=== PATIENT | male | born 1955 | race Caucasian/White ===

== ENCOUNTER → 2018-05-28 10:54 | Outpatient (CLI) | payer MEDICARE, SELFPAY ==
[2018-05-28 12:09] LABS: BUN Creatinine Ratio 22.5 (6-22); Blood Urea Nitrogen 27 mg/dL (9-20); Calcium 9.3 mg/dL (8.4-10.2); Carbon Dioxide 29 mmol/L (22-32); Chloride 98 mmol/L (98-107); Estimated Glomerular Filt Rate > 60.0 mL/min (>60); Glucose 105 mg/dL (80-110); HEMOLYSIS 28 (0-50); Potassium 4.6 mmol/L (3.4-5.1); Sodium 139 mmol/L (137-145)
[2018-06-01 14:06] LABS: JAK2 V617F NOT DETECTED (NOT DETECTED)
== END ==
PROVIDERS: PCP Physician Assistant; Visit Provider Physician Assistant
DX: D45 Polycythemia vera (principal); E11.9 Type 2 diabetes mellitus without complications
CPT/HCPCS: 36415; 80048; 81270

== ENCOUNTER → 2018-05-31 16:15 | Outpatient (CLI) | payer MEDICARE, SELFPAY ==
--- NOTE | 2018-05-31 16:18 | DI.MRI.S_ITS ---
PROCEDURE: MR SHOULDER RT WO CON INDICATIONS: RIGHT SHOULDER PAIN TECHNIQUE: Noncontrast oblique coronal T2 fast spin echo with fat saturation, oblique sagittal T1 spin echo and T2 fast spin echo with fat saturation, axial T1 spin echo and T2 fast spin echo with fat saturation through the shoulder. COMPARISON: None. FINDINGS: Image quality: Diagnostic. Rotator cuff: There is a high-grade bursal surface partial-thickness tear identified involving the anterior distal supraspinatus tendon and the distal infraspinatus tendon. A small full-thickness component is suspected without significant retraction. There is moderate supraspinatus and infraspinatus tendinopathy increased signal extends along the infraspinatus myotendinous junction. There is subscapularis tendon demonstrates low to moderate grade articular surface partial thickness tearing. The teres minor tendon is intact. There is atrophy involving the teres minor muscle. No significant atrophy involving the remainder of the rotator cuff muscles is evident. Bones and bursae: There is no acute fracture, dislocation, suspicious osseous lesion, or evidence of avascular necrosis involving the osseous structures of the right shoulder. There are mild degenerative changes of the glenohumeral joint with an associated small glenohumeral joint effusion. Moderate degenerative changes of the acromioclavicular joint are present. There is a moderate amount of fluid contained within the subacromial subdeltoid bursa. Capsule and soft tissues: Evaluation of the labrum and the glenohumeral ligaments is difficult without intra-articular contrast. There is increased signal identified along the superior margin of the labrum, suspicious for a superior labral tear. Additional heterogeneity and increased signal at the labral cartilaginous junction along the anteroinferior and posteroinferior margins of the labrum are present. A full-thickness tear involving the long head of the biceps tendon is identified with the distal retraction beyond the bicipital groove. No acute injuries are suspected involving the glenohumeral ligaments. IMPRESSION: 1. There is at least a high grade bursal surface partial thickness tear involving the distal supraspinatus and infraspinatus tendons. Non-retracted full-thickness component is suspected. There is corresponding tendinopathy and possible delamination of the infraspinatus myotendinous junction. 2. Low to moderate grade partial-thickness subscapularis tendon tear. 3. Full-thickness tear of the long head of the biceps tendon with moderate distal retraction. 4. Complex tearing of the labrum may be circumferential and likely is degenerative. The need for better characterization utilizing MR arthrography may be determined clinically. 5. Moderate degenerative changes of the acromioclavicular joint. 6. Fluid contained within the subacromial subdeltoid bursa is likely reactive to the rotator cuff injury. Dictated by: Stevie Islas M.D. on 05/31/2018 at 16:58 Approved by: Stevie Islas M.D. on 05/31/2018 at 17:04
== END ==
PROVIDERS: PCP Physician Assistant; Visit Provider Physician Assistant
DX: M75.111 Incomplete rotator cuff tear or rupture of right shoulder, not specified as traumatic (principal); M19.011 Primary osteoarthritis, right shoulder
CPT/HCPCS: 73221

== ENCOUNTER → 2018-06-30 11:34 | Outpatient (CLI) | payer MEDICARE, SELFPAY ==
[2018-06-30 11:44] LABS: Bacteria Urine None Seen; RBC Urine None Seen (0-5/HPF)
[2018-06-30 12:27] LABS: Add Manual Diff / Slide Review NO; Basophils Percent Auto 0.7 % (0-2); Eosinophils Percent Auto 2.3 % (2-4); Hematocrit 56.8 % (41-53); Hemoglobin 18.8 g/dL (13.5-17.5); Lymphocytes Percent Auto 17.9 % (25-40); Mean Corpuscular HGB Conc 33.2 % (30-36); Mean Corpuscular Hemoglobin 32.3 PG (26-34); Mean Corpuscular Volume 97.4 fL (80-100); Monocytes Percent Auto 8.5 % (3-14); Neutrophils Absolute Auto 8100 /uL (3000-5900); Neutrophils Percent Auto 70.6 % (50-75); Platelet Count 203 X10^3/uL (150-400); Red Blood Cell Count 5.83 X10^6/uL (4.5-5.9); Red Cell Distribution Width 15.1 % (11.6-14.8); White Blood Cell Count 11.4 X10^3/uL (4.5-11.0)
[2018-06-30 12:48] LABS: Appearance Urine UA CLEAR; Bilirubin Urine UA NEGATIVE (NEGATIVE); Color Urine UA YELLOW; Glucose Urine UA 3+ g/dL (Normal); Ketones Urine UA NEGATIVE (NEGATIVE); Leukocyte Esterase Urine UA NEGATIVE (NEGATIVE); Nitrite Urine UA Negative (Negative); Occult Blood Urine UA NEGATIVE (Negative); Protein Urine UA NEGATIVE (Negative); Prothrombin Time 10.5 SECONDS (10.1-12.7); Urobilinogen Urine UA 0.2 E.U./dL (0.2)
[2018-06-30 12:49] LABS: Alanine Aminotransferase 32 IU/L (21-72); Albumin 4.1 g/dL (3.5-5.0); Albumin Globulin Ratio 1.5 (1.0-2.8); Alkaline Phosphatase 84 U/L (38-126); Aspartate Aminotransferase 26 IU/L (17-59); BUN Creatinine Ratio 17.3 (6-22); Bilirubin Total 0.6 mg/dL (0.2-1.3); Blood Urea Nitrogen 19 mg/dL (9-20); Calcium 9.9 mg/dL (8.4-10.2); Carbon Dioxide 27 mmol/L (22-32); Chloride 102 mmol/L (98-107); Estimated Glomerular Filt Rate > 60.0 mL/min (>60); Globulin 2.8 g/dL (1.7-4.1); Glucose 65 mg/dL (80-110); HEMOLYSIS 40 (0-50); Potassium 4.7 mmol/L (3.4-5.1); Sodium 141 mmol/L (137-145); Total Protein 6.9 g/dL (6.3-8.2)
[2018-06-30 13:17] LABS: Culture Indicated Urine Cult Not Indicated; Squamous Epithelial Cell Urine 0-1 /HPF; WBC Urine 0-1/HPF (0-5/HPF)
== END ==
PROVIDERS: PCP Physician Assistant; Visit Provider Neurological Surgery
DX: Z01.812 Encounter for preprocedural laboratory examination (principal); M46.96 Unspecified inflammatory spondylopathy, lumbar region; M96.1 Postlaminectomy syndrome, not elsewhere classified
CPT/HCPCS: 36415; 80053; 81001; 85025; 85610

== ENCOUNTER → 2018-09-05 15:37 | Outpatient (CLI) | payer MEDICARE, SELFPAY ==
[2018-09-05 16:04] LABS: Add Manual Diff / Slide Review NO; Basophils Percent Auto 0.7 % (0-2); Eosinophils Percent Auto 1.4 % (2-4); Hematocrit 55.7 % (41-53); Hemoglobin 18.4 g/dL (13.5-17.5); Mean Corpuscular Hemoglobin 32.2 PG (26-34); Mean Corpuscular Volume 97.7 fL (80-100); Monocytes Percent Auto 12.1 % (3-14); Neutrophils Absolute Auto 6600 /uL (3000-5900); Neutrophils Percent Auto 70.8 % (50-75); Platelet Count 211 X10^3/uL (150-400); Red Cell Distribution Width 17.5 % (11.6-14.8); White Blood Cell Count 9.3 X10^3/uL (4.5-11.0)
[2018-09-05 16:13] LABS: BUN Creatinine Ratio 19.2 (6-22); Blood Urea Nitrogen 25 mg/dL (9-20); Calcium 9.4 mg/dL (8.4-10.2); Carbon Dioxide 33 mmol/L (22-32); Chloride 99 mmol/L (98-107); Estimated Glomerular Filt Rate 55.4 mL/min (>60); Glucose 96 mg/dL (80-110); HEMOLYSIS 20 (0-50); Potassium 4.5 mmol/L (3.4-5.1); Sodium 143 mmol/L (137-145)
== END ==
PROVIDERS: PCP Physician Assistant; Visit Provider Orthopaedic Surgery
DX: Z01.818 Encounter for other preprocedural examination (principal); M25.511 Pain in right shoulder
CPT/HCPCS: 36415; 80048; 85025; 93005; 93010

== ENCOUNTER 2018-09-16 11:21 | Day surgery (SDC) | payer MEDICARE, SELFPAY ==
[2018-09-13 08:21] VITALS: BMI 38.4
[2018-09-16] VITALS (10 sets, daily range): BP systolic 101–134; BP diastolic 39–76; PULSE 63–74; RESP 11–16; TEMP 36.3–37.8; O2SAT 93–100; BMI 38.4
[2018-09-16] MEDS: LACTATED RINGERS 1,000 ML 42 ML IV ×2 (12:27→13:24)
--- NOTE | 2018-09-16 12:40 | SUR.PREOP ---
CGM (CONTINUOUS GLUCOSE MONITOR ) IN LEFT UPPER ARM, SPINAL NERVE STIMULATOR PT STATES HE HAS SHUT IT OFF.
--- NOTE | 2018-09-16 13:04 | PM.PREOP ---
Pre-operative Note Interval Note Pre-op Check: Yes History & Physical Reviewed by Physician and Yes Exam Performed Changes: Yes H&P completed within 30 days and has changed as indicated here:: The patient has had a low grade temperature with no other symptoms. There are no findings of infection related to the right shoulder and his lungs are clear.
[2018-09-16] MEDS: CEFAZOLIN 2 GM/100 ML FROZ.PIGGY IV (13:52)
--- NOTE | 2018-09-16 14:37 | SUR.OPER ---
Lateral on padded OR bed with collado bag positioner, head on pillow, gel axillary roll in place, bottom leg bent with gel pad under knee to foot, upper leg straight and supported with pillows. Operative arm secured in shoulder positioning suspension device. non-operative arm secured on padded arm board. Safety belt at hip, tape over blanket securing lower legs, torso and head.
--- NOTE | 2018-09-16 15:57 | PM.OP.1 ---
Operative Date/Time/Diagnoses Date of procedure: 09/16/18 Time of procedure: 15:40 Pre-op diagnosis: Right shoulder rotator cuff tear Post-op diagnosis: same (Also biceps tendinitis) Procedure & Clinicians Procedure: 1. Arthroscopic rotator cuff repair, right shoulder 2. Arthroscopic subacromial decompression, right shoulder 3. Arthroscopic biceps tenotomy, right shoulder 4. Suprascapular nerve block performed by surgeon for postoperative pain control. 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 His MRI appears to show tearing of both the junction of the supraspinatus with the infraspinatus and the subscapularis. After discussion the risks benefits and alternatives he has agreed to surgery. Risks discussed included but were not limited to: Failure to improve, stiffness, infection, nerve damage, deep venous thrombosis, pulmonary embolism, stroke, myocardial infarction, permanent paralysis and . Surgeon: Santy B[employer] Sales Representative: Lorene Acosta'Brien Click Yes if Unassisted: No Anesthesia Type: General, Peripheral nerve block and Local Operative Notes Findings: 1. Intact glenohumeral cartilage 2. Minimal fraying of the glenoid labrum 3. Intact glenohumeral ligaments 4. Thinning and loss of footprint coverage of the superior portion of the subscapularis tendon 5. Intact appearing supraspinatus from the joint 6. Intact appearing infraspinatus from the joint. 7. Normal axillary pouch 8. Significant fraying of the biceps with subluxation out of the groove beneath the subscapularis. 9. Fraying and tearing of the bursal surface of the rotator cuff at the junction between the supraspinatus and infraspinatus as expected based on the MRI. 10. Type 2 acromion with impingement lesion 11. Degenerative change of the acromioclavicular joint left in situ as it was asymptomatic preoperatively. 12 normal range of motion with no evidence for pathologic laxity on exam under anesthesia. Closure Type: primary Specimen(s): none sent Implants & Drains: Two Mitek Healix BR 5.5 mm double threaded suture anchors Applied: implant(s) Estimated Blood Loss (mL): 10 Blood products transfused: none Procedure in detail: The patient was seen in the preoperative area where he identified his right shoulder as the operative site and this was marked with my initials. He received preoperative antibiotics with an appropriate 1st generation cephalosporin. He was then transferred to the operating room and placed on the operating room table in a supine position where he underwent the induction of a general anesthetic. Following satisfactory general anesthesia his shoulder was examined under anesthesia with the findings given above. He was then repositioned in the left lateral decubitus position with an axillary roll and collado bag. All pressure points were well padded. The right arm was prepared for the fingertips to the base the neck with ChloraPrep in the usual fashion and draped through sterile drapes. The arm was placed in 10 lb of balanced skin suspension. The subcutaneous landmarks were outlined on the skin with marking pen and portal sites selected. Prior to creating a portal the suprascapular nerve was blocked through a superior approach in the usual fashion with 10 mL of 0.5% Marcaine. A posterior portal was then created and the arthroscope inserted into the glenohumeral joint. An anterior portal was created for instrumentation. Diagnostic arthroscopy ensued with result given above. After diagnostic arthroscopy shaver was inserted to the anterior portal and used to excise the rotator interval tissue to allow repair of the subscapularis. The biceps was marked with a suture and cut. The quality of the biceps tissue was very poor and I was concerned that a suture tenodesis would not remain intact. The superior aspect of the lesser tuberosity was cleaned to bleeding bone using the shaver. An anchor was placed in the superior aspect of the lesser tuberosity. A penetrating suture grasper was used to place the sutures through the subscapularis. They were tied and this satisfactorily repaired the subscapularis to the lesser tuberosity. We then removed the arthroscope and placed it into the subacromial space through the posterior portal. The bursal surface rotator cuff tear was identified at the junction of the supraspinatus and infraspinatus. The greater tuberosity in this area was cleaned to bleeding bone. The last remaining portion of the cuff into the joint was removed with shaver. The type 2 acromion was converted to type 1 acromion using the bur in the cutting block technique. An anchor was placed in the greater tuberosity and the sutures placed across the tear in simple suture fashion and tied to complete the repair. At this point I elected to remove the tag suture from the biceps due to the fact that the poor tissue quality would not allow suture tenodesis with strong repair quality. All arthroscopic equipment was removed. The wounds were closed with 4 0 Monocryl and Steri-Strips. The subcutaneous tissues in the subacromial space were injected with a total of 20 mL 0.5% Marcaine for additional postoperative pain control. Dressings sterile 4x4s, an ABD and adhesive dressings were applied. The patient's arm was placed in a sling and he was transported to the recovery room in good condition having tolerated the procedure well. Complications: none Condition: stable Disposition: PACU Plan for aftercare: The patient will be maintained on a standard subscapularis repair protocol with 6 weeks of passive range of motion. He will need Modesta be limited to 0? forward flexion, 0? external rotation at the side, 0? of abduction and internal rotation to the body. He will then be advanced as per protocol and physical therapy. The plan is for him to be discharged today from the recovery room.
[2018-09-16] MEDS: fentaNYL 100 MCG/2 ML INJ 50 MCG IV ×2 (16:10→16:20)
[2018-09-16] MEDS: OXYCODONE IR 5 MG TABLET PO (16:40)
== END 2018-09-16 17:58 | disposition home or self-care (01) ==
PROVIDERS: PCP Physician Assistant; Visit Provider Orthopaedic Surgery
PROC: (CPT 29827; principal; 2018-09-16 13:00)
PROC: (CPT 29827; 2018-09-16 13:00)
DX: M75.121 Complete rotator cuff tear or rupture of right shoulder, not specified as traumatic (principal); M25.811 Other specified joint disorders, right shoulder; M75.21 Bicipital tendinitis, right shoulder; G47.33 Obstructive sleep apnea (adult) (pediatric); I73.9 Peripheral vascular disease, unspecified; E66.9 Obesity, unspecified; I25.2 Old myocardial infarction; I10 Essential (primary) hypertension; E11.9 Type 2 diabetes mellitus without complications; J45.909 Unspecified asthma, uncomplicated; Z95.1 Presence of aortocoronary bypass graft; Y93.55 Activity, bike riding; V18.0XXA Pedal cycle driver injured in noncollision transport accident in nontraffic accident, initial encounter; Z79.4 Long term (current) use of insulin; Z68.38 Body mass index [BMI] 38.0-38.9, adult
CPT/HCPCS: 29827; 29826; 64415; J0330; J0690; J1885; J2250; J2405; J2704; J3010

== ENCOUNTER → 2018-11-28 12:09 | Outpatient (CLI) | payer MEDICARE, SELFPAY ==
[2018-11-28 12:34] LABS: Add Manual Diff / Slide Review NO; Basophils Percent Auto 0.6 % (0-2); Eosinophils Percent Auto 2.4 % (2-4); Hematocrit 58.3 % (41-53); Hemoglobin 18.8 g/dL (13.5-17.5); Lymphocytes Percent Auto 17.4 % (25-40); Mean Corpuscular HGB Conc 32.3 % (30-36); Mean Corpuscular Hemoglobin 32.7 PG (26-34); Mean Corpuscular Volume 101.1 fL (80-100); Monocytes Percent Auto 7.9 % (3-14); Neutrophils Absolute Auto 8000 /uL (1500-7000); Neutrophils Percent Auto 71.7 % (50-75); Platelet Count 202 X10^3/uL (150-400); Red Blood Cell Count 5.77 X10^6/uL (4.5-5.9); Red Cell Distribution Width 15.2 % (11.6-14.8); White Blood Cell Count 11.1 X10^3/uL (4.5-11.0)
[2018-11-28 12:42] LABS: Alanine Aminotransferase 31 IU/L (21-72); Albumin 4.5 g/dL (3.5-5.0); Albumin Globulin Ratio 1.4 (1.0-2.8); Alkaline Phosphatase 82 U/L (38-126); Aspartate Aminotransferase 25 IU/L (17-59); BUN Creatinine Ratio 25.8 (6-22); Bilirubin Total 0.4 mg/dL (0.2-1.3); Blood Urea Nitrogen 31 mg/dL (9-20); Calcium 9.7 mg/dL (8.4-10.2); Carbon Dioxide 29 mmol/L (22-32); Chloride 102 mmol/L (98-107); Estimated Glomerular Filt Rate > 60.0 mL/min (>60); Globulin 3.3 g/dL (1.7-4.1); Glucose 116 mg/dL (80-110); HEMOLYSIS < 15 (0-50); Potassium 4.9 mmol/L (3.4-5.1); Sodium 141 mmol/L (137-145); Total Protein 7.8 g/dL (6.3-8.2)
[2018-11-28 12:51] LABS: Hemoglobin A1C% w Est Avg Glu 6.5 % (4.0-6.0)
== END ==
PROVIDERS: PCP Physician Assistant; Visit Provider Physician Assistant
DX: I10 Essential (primary) hypertension (principal); E78.5 Hyperlipidemia, unspecified; E11.9 Type 2 diabetes mellitus without complications
CPT/HCPCS: 36415; 80053; 83036; 85025